=== PATIENT | male | born 1995 | race Two or more races ===

== ENCOUNTER 2020-01-13 00:26 | Emergency (ER) | payer SELFPAY ==
[~2020-01-13] VITALS: Ht 180.3 cm; Wt 79.4 kg
--- NOTE | 2020-01-13 00:32 | NUR ---
PT BIB [facility] WITH A C/O NOT BEING ABLE TO SLEEP FOR 2 DAYS. PT IS HOMELESS AND DENIES ANY OTHER PROBLEMS AT THIS TIME. PT DENIES ALL DRUG USE EXCEPT FOR CANNABIS. PT WAS TRIAGED AND TAKEN TO ROOM #2.
--- NOTE | 2020-01-13 00:40 | NUR ---
DR THORPE IS AT THE BEDSIDE EVALUATING THE PT.
--- NOTE | 2020-01-13 00:56 | NUR ---
Patient discharged [facility] in stable condition. Written and verbal after care instructions given. Patient verbalizes understanding of instruction. PT SIGNED THE HOMELESS WAIVER AND REC'D A TAP CARD. PT REC'D THE HOMELESS PACKAGE, SANDWICH, JUICE, PUDDING AND YOGURT. PT AMBULATED OUT WITH A STEADY GAIT. VSS
[2020-01-13 00:58] VITALS: BP 136/78
== END 2020-01-13 00:59 | disposition home or self-care (01) ==
LOC: ER 00:33
DX: R53.83 Other fatigue (principal)